=== PATIENT | male | born 1930 | race Caucasian/White ===

== ENCOUNTER → 2017-02-13 | Outpatient (CLI) | payer MEDICARE ==
[~2017-02-13] MED LIST: ASP81TEC PO; FINA5TAB6 PO; GLUC100020 PO; OLME1TAB19 PO; OMEG-70 PO; OMEP20TA2 PO; UBID1CAP51 PO
--- NOTE | 2017-02-15 07:03 | STRESS TEST ---
DATE OF SERVICE: 02/13/2017 REFERRING PHYSICIAN: Yary Laura M.D. INDICATION: Baseline heart rate is 73, baseline blood pressure 141/74. Baseline EKG is sinus rhythm with no ischemic changes. IN SUMMARY: The patient started exercising with the baseline heart rate, blood pressure and EKG mentioned above. At minute 6, the patient had occasional PVCs and ventricular couplets, EKG overall showed nondiagnostic changes [address] depression in II, III, aVF, V4 and V5. The patient was able to exercise for a total of 6 minutes and 30 seconds on standard Jose protocol. With peak exercise level, blood pressure was 210/66. EKG was showing nondiagnostic changes. During recovery, heart rate and blood pressure returned to baseline. EKG returned to baseline. Echocardiographic images were acquired and reviewed in the parasternal long axis, parasternal short axis, apical four chamber and apical two chamber views. Review of the images showed normal left ventricular size with normal contractility, no ischemic changes. CONCLUSION: 1. Good exercise tolerance a total of 6 minutes 30 seconds on standard Jose protocol, total of 7.9 METs achieving 100% of maximum expected heart rate. 2. Appropriate heart rate response to exercise, occasional PVCs and ventricular couplets noted at peak exercise level. 3. Nondiagnostic EKG changes with exercise returned to baseline during recovery. 4. Normal echocardiographic images at rest and with peak stress images with no significant ischemic changes. Job ID: [id number] DocumentID: [id number] Dictated Date: 02/13/2017 15:56:37 Alley Tender Date: 02/13/2017 18:35:44 Dictated By: SONIA GRIMALDO MD
== END ==
LOC: CARD 08:08
PROVIDERS: ATTEND Internal Medicine Cardiovascular Disease
DX: I10 Essential (primary) hypertension (principal); R94.31 Abnormal electrocardiogram [ECG] [EKG]; R53.83 Other fatigue; Z98.890 Other specified postprocedural states
CPT/HCPCS: 93306; 93351

== ENCOUNTER 2018-01-20 10:35 | Outpatient (RCR) | payer MEDICARE | END 2018-01-20 11:11 | disposition home or self-care (01) | PROVIDERS: ATTEND Family Medicine | DX: M19.111 Post-traumatic osteoarthritis, right shoulder (principal) ==

== ENCOUNTER 2018-08-08 11:43 | Emergency (ER) | payer MEDICARE ==
[~2018-08-08] VITALS: Ht 182.9 cm; Wt 73.9 kg
--- OUTSIDE RECORDS SUMMARY | 2018-08-08 11:47 | XMS REPORT | Continuity of Care Document ---
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 Allergies, Adverse Reactions, Alerts Allergen Type Severity Reaction Last Updated penicillin G Allergy Unknown 10/12/05 Medications Medication Dose Units Route Sig Qty Days Ubidecarenone/Vit E Acetate (Co Q-10 100 Mg Softgel) 1 Each PO DAILY [place]-3S/Dha/Epa/Fish Oil ([place]-3 Fish Oil 1,400 Mg Sfgl) 1 Each PO DAILY Glucosamine Sulfate 2KCL (Glucosamine Sulfate) 1000 Mg PO DAILY Aspirin (Aspirin Ec 81 Mg) 81 Mg PO DAILY Omeprazole 20 Mg PO DAILY Finasteride 5 Mg PO DAILY Olmesartan (Benicar Hct 20-12.5 Mg Tab) 1 Each PO DAILY Immunizations Name Given Type Date of Pneumonia Vaccine 07/03/10 H Date of Influenza Vaccine 04/02/12 H Response Recorded Date/Time Status not known Unknown Results Test Date Result Interp. Ref. Range Alanine Aminotransferase (ALT/SGPT) October 13, 2005 3:10pm 30 U/L N 30-65 Albumin October 13, 2005 3:10pm 3.0 G/DL L 3.4-5.0 Alkaline Phosphatase October 13, 2005 3:10pm 91 U/L N 50-136 Aspartate Amino Transf (AST/SGOT) October 13, 2005 3:10pm 13 U/L L 15-37 BUN/Creatinine Ratio October 13, 2005 3:10pm 16 - Basophils # (Auto) October 13, 2005 4:10pm 0.0 X 10^3 N 0.0-0.1 Basophils (%) (Auto) October 13, 2005 4:10pm 0 % N 0-10 Blood Urea Nitrogen October 13, 2005 3:10pm 21 MG/DL H 7-18 Calcium Level October 13, 2005 3:10pm 8.2 MG/DL L 8.5-10.1 Carbon Dioxide Level October 13, 2005 3:10pm 29 MMOL/L N 21-32 Chloride Level October 13, 2005 3:10pm 102 MMOL/L N 101-110 Creatinine October 13, 2005 3:10pm 1.3 MG/ DL N 0.6-1.3 D-Dimer October 13, 2005 4:10pm 0.83 UG/ ML H 0.00-0.49 Eosinophils # (Auto) October 13, 2005 4:10pm 0.2 X 10^3 N 0.0-0.3 Eosinophils (%) (Auto) October 13, 2005 4:10pm 2 % N 0-10 Glucose Level October 13, 2005 3:10pm 133 MG/DL H 70-126 Hematocrit October 13, 2005 4:10pm 37 % L 40-54 Hemoglobin October 13, 2005 4:10pm 11.7 G/ DL L 13.3-17.7 Lymphocytes # (Auto) October 13, 2005 4:10pm 1.6 X 10^3 N 1.0-4.0 Lymphocytes (%) (Auto) October 13, 2005 4:10pm 17 % N 12-44 Mean Corpuscular Hemoglobin October 13, 2005 4:10pm 26 PG N 25-34 Mean Corpuscular Hemoglobin Concent October 13, 2005 4:10pm 32 G/DL N 32-36 Mean Corpuscular Volume October 13, 2005 4:10pm 82 FL N 80-99 Mean Platelet Volume October 13, 2005 4:10pm 11.0 FL H 7.4-10.4 Monocytes # (Auto) October 13, 2005 4:10pm 0.9 X 10^3 N 0.0-1.0 Monocytes (%) (Auto) October 13, 2005 4:10pm 10 % N 0-12 Neutrophils # (Auto) October 13, 2005 4:10pm 6.6 X 10^3 N 1.8-7.8 Neutrophils (%) (Auto) October 13, 2005 4:10pm 71 % N 42-75 Platelet Count October 13, 2005 4:10pm 215 X 10^3 N 130-400 Potassium Level October 13, 2005 3:10pm 3.3 MMOL/L L 3.6-5.0 Red Blood Count October 13, 2005 4:10pm 4.44 X 10^6 N 4.30-5.45 Red Cell Distribution Width October 13, 2005 4:10pm 17.9 % H 10.0-14.5 Sodium Level October 13, 2005 3:10pm 136 MMOL/L N 135-145 Total Bilirubin October 13, 2005 3:10pm 0.2 MG/DL N 0.0-1.0 Total Protein October 13, 2005 3:10pm 5.6 G/DL L 6.4-8.2 Troponin I October 14, 2005 3:30am < 0.10 MG/ML 0.00-0.10 Urine Bacteria October 14, 2005 11:10am Negative - Urine Bilirubin October 14, 2005 11:10am Negative - Urine Casts October 14, 2005 11:10am None - Urine Clarity October 14, 2005 11:10am Clear - Urine Color October 14, 2005 11:10am Yellow - Urine Crystals October 14, 2005 11:10am None - Urine Glucose (UA) October 14, 2005 11:10am Negative - Urine Ketones October 14, 2005 11:10am Negative - Urine Leukocyte Esterase October 14, 2005 11:10am Negative - Urine Mucus October 14, 2005 11:10am Negative - Urine Nitrate October 14, 2005 11:10am Negative - Urine Protein October 14, 2005 11:10am Negative - Urine RBC October 14, 2005 11:10am 0-2 / HPF H - Urine Specific [place] October 14, 2005 11:10am 1.015 L - Urine Squamous Epithelial Cells October 14, 2005 11:10am Rare - Urine Urobilinogen October 14, 2005 11:10am Normal MG/DL - Urine WBC October 14, 2005 11:10am None / HPF - Urine pH October 14, 2005 11:10am 6.0 - White Blood Count October 13, 2005 4:10pm 9.3 X 10^3 N 4.3-11.0 Pathology Consult Specimen October 13, 2005 4:10pm See report - Creatine Kinase October 14, 2005 3:30am 13 mg/dl L 21-170 Procedures Procedure Code Date LESION REMOVAL COLONOSCOPY 51877 UPPER GI ENDOSCOPY/TUMOR 98864 08/10/05 UPPER GI ENDOSCOPY BIOPSY 03860 08/10/05 ENDOSCOPY MAXILLARY SINUS 72655 10/12/05 SINUS ENDOSCOPY SURGICAL 44486 10/12/05 REMOVAL OF ETHMOID SINUS 13928 10/12/05 NASAL/SINUS ENDOSCOPY SURG 72759 REPAIR OF NASAL SEPTUM 30222 10/12/05 RESECT INFERIOR TURBINATE 80987 10/12/05 DIAGNOSTIC COLONOSCOPY 43494 04/16/07
--- OUTSIDE RECORDS SUMMARY | 2018-08-08 11:48 | XMS REPORT | Continuity of Care Document ---
Author Author [facility] Organization [facility] Address Unknown Phone Unavailable Allergies Active Description Code Type Severity Reaction Onset Reported/Identified Relationship to Patient Clinical Status Yes penicillin G [id number] Drug Allergy Unknown N/A 10/12/2005 Medications There is no data. Problems Date Dx Coded Attending Type Code Diagnosis Diagnosed By 12/30/2012 MARVIN COBIAN MD Ot 455.3 EXT HEMORRHOID W/O COMPL 12/30/2012 MARVIN COBIAN MD Ot 562.10 DIVERTICULOSIS COLON (W/O MENT OF HEMORR 12/30/2012 MARVIN COBIAN MD Ot 569.3 RECTAL ANAL HEMORRHAGE 12/30/2012 MARVIN COBIAN MD Ot 600.00 HYPERTROPHY (BENIGN) OF PROSTATE W/O URI 05/29/2013 BRIGITTE WOOD MD Ot V43.65 KNEE JOINT REPLACEMENT STATUS 05/29/2013 BRIGITTE WOOD MD Ot V54.81 AFTERCARE FOLLOWING JOINT REPLACEMENT 05/29/2013 BRIGITTE WOOD MD Ot V57.1 PHYSICAL THERAPY NEC 02/14/2017 SONIA GRIMALDO MD Ot I10 ESSENTIAL (PRIMARY) HYPERTENSION 02/14/2017 SONIA GRIMALDO MD Ot R53.83 OTHER FATIGUE 02/14/2017 SONIA GRIMALDO MD Ot R94.31 ABNORMAL ELECTROCARDIOGRAM [ECG] [EKG] 02/14/2017 SONIA GRIMALDO MD Ot Z98.890 OTHER SPECIFIED POSTPROCEDURAL STATES 04/04/2017 SONIA GRIMALDO MD Ot I10 ESSENTIAL (PRIMARY) HYPERTENSION 04/04/2017 SONIA GRIMALDO MD Ot R53.83 OTHER FATIGUE 04/04/2017 SONIA GRIMALDO MD Ot R94.31 ABNORMAL ELECTROCARDIOGRAM [ECG] [EKG] 04/04/2017 SONIA GRIMALDO MD Ot Z98.890 OTHER SPECIFIED POSTPROCEDURAL STATES 04/10/2017 SONIA GRIMALDO MD Ot I10 ESSENTIAL (PRIMARY) HYPERTENSION 04/10/2017 SONIA GRIMALDO MD Ot R53.83 OTHER FATIGUE 04/10/2017 SONIA GRIMALDO MD Ot R94.31 ABNORMAL ELECTROCARDIOGRAM [ECG] [EKG] 04/10/2017 SONIA GRIMALDO MD Ot Z98.890 OTHER SPECIFIED POSTPROCEDURAL STATES 11/04/2017 KIKI BERUMEN, ARIAS Triana Ot 729.5 PAIN IN LIMB 11/04/2017 MARVIN COBIAN MD Ot V72.84 EXAM PRE-OPERATIVE NOS 11/04/2017 SONIA GRIMALDO MD Ot I10 ESSENTIAL (PRIMARY) HYPERTENSION 11/04/2017 SONIA GRIMALDO MD Ot R53.83 OTHER FATIGUE 11/04/2017 SONIA GRIMALDO MD Ot R94.31 ABNORMAL ELECTROCARDIOGRAM [ECG] [EKG] 11/04/2017 SONIA GRIMALDO MD Ot Z98.890 OTHER SPECIFIED POSTPROCEDURAL STATES 12/12/2017 MINAL RODRIGUEZ MD Ot M19.111 POST-TRAUMATIC OSTEOARTHRITIS, RIGHT LICHA 01/13/2018 MINAL RODRIGUEZ MD Ot 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 Results There is no data. Encounters ACCT No. Visit Date/Time Discharge Status Pt. Type Provider Facility Loc./Unit Complaint [id number] 01/20/2018 10:35:00 01/20/2018 11:11:00 DIS Outpatient MINAL RODRIGUEZ MD [facility] REHAB PAIN IN R SHOULDER; SECONDARY OA R SHOULDER [id number] 02/13/2017 08:08:00 02/13/2017 23:59:59 CLS Outpatient SONIA GRIMALDO MD [facility] CARD HTN I10,ABNORMAL ECG R94.31 [id number] 05/18/2013 14:34:00 05/29/2013 10:25:00 DIS Outpatient BRIGITTE WOOD MD [facility] REHAB RIGHT TKR [id number] 12/30/2012 08:29:00 12/30/2012 11:45:00 DIS Outpatient MARVIN COBIAN MD [facility] SDC RECTAL BLEEDING [id number] 12/24/2012 08:14:00 12/24/2012 23:59:59 CLS Outpatient ARANZA BERUMEN, MARVIN Lee [facility] PREOP RECTAL BLEEDING [id number] 12/22/2012 09:00:00 12/22/2012 23:59:59 CLS Outpatient KIKI BERUMEN, ARIAS Triana [facility] RAD BILAT LEG PAIN, ESPECIALLY WITH STANDING [id number] 11/04/2017 11:52:00 Document Registration [id number] 03/05/2017 19:23:53 03/05/2017 23:59:59 CLS Outpatient
--- NOTE | 2018-08-08 12:51 | ED General ---
General Chief Complaint: Neurological Problems Stated Complaint: CONFUSION Nursing Triage Note: Ambulatory to triage. Pt accompanied by . reports pt was going from window to window and stated, "I am trying to figure out what's going on. When did I put the shield on the truck window?" reports nothing had changed and pt had put shield on truck a week ago. reports pt did not know what day it was and pt attempted to medications twice this morning. Pt A&O times 4 during assessment. Pt denies pain at this time. Pt reports calling Dr. Michael Ruvalcaba and was told to come to ED. Nursing Sepsis Screen: No Definite Risk Source of Information: Patient, Family Exam Limitations: No Limitations History of Present Illness Date Seen by Provider: Aug 08, 2018 Time Seen by Provider: 12:46 Initial Comments tHE PATIENT IS A PLEASANT 87-YEAR-OLD WHITE MALE. He was brought here at the insistence of his . She reported that between 1 and 2 hours after they had gotten out of bed this morning she found him wondering about from windowed window in the front room. When she questioned him about what he was doing he reported that he was trying to figure things out. He was quite confused but showed no evidence of incoordination or muscular weakness. His gait appeared to be normal. She estimates that they started out here at about 1130 after having spoken to their doctor's office. By that time he was much better oriented. He denies fever chills sweats. His health has generally been good. 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 He also takes medications for hypertension. Timing/Duration: 4-6 Hours Allergies and Home Medications Allergies Coded Allergies: amoxicillin (Unverified Allergy, Unknown, rash, 08/08/18) penicillin G (Verified Allergy, Unknown, 10/12/05) Home Medications Aspirin 81 Mg Tabec, 81 MG PO DAILY, (Reported) Finasteride 5 Mg Tablet, 5 MG PO DAILY, (Reported) Glucosamine Sulfate 2KCL 1,000 Mg Capsule, 1,000 MG PO DAILY, (Reported) Olmesartan 1 Tab Tablet, 1 EACH PO DAILY, (Reported) [place]-3S/Dha/Epa/Fish Oil 1 Each Capsule., 1 EACH PO DAILY, (Reported) Omeprazole 20 Mg Tablet.dr, 20 MG PO DAILY, (Reported) Ubidecarenone/Vit E Acetate 1 Each Capsule, 1 EACH PO DAILY, (Reported) Patient Home Medication List Home Medication List Reviewed: Yes Review of Systems Review of Systems Constitutional: see HPI EENTM: no symptoms reported Respiratory: no symptoms reported Cardiovascular: no symptoms reported Gastrointestinal: no symptoms reported Genitourinary: no symptoms reported Musculoskeletal: no symptoms reported Skin: no symptoms reported Psychiatric/Neurological: No Symptoms Reported Hematologic/Lymphatic: No Symptoms Reported Past Wkaoyfv-[id number]-Xojzeq Hx Patient Social History Recent Foreign Travel: No Contact w/Someone Who Travel: No Recent Infectious Disease Expo: No Immunizations Up To Date Date of Pneumonia Vaccine: Jul 03, 2010 Date of Influenza Vaccine: Apr 02, 2012 Physical Exam Vital Signs Vital Signs - First Documented 08/08/18 12:05 Temp 97.3 Pulse 85 Resp 16 B/P (MAP) 156/73 (100) Pulse Ox 96 O2 Delivery Room Air Capillary Refill : Less Than 3 Seconds Height, Weight, BMI Height: 6'0" Weight: 163lbs. oz. 73.803071lo; BMI Method:Stated General Appearance: No Apparent Distress, WD/WN Eyes: Bilateral Eye Normal Inspection HEENT: Normal ENT Inspection Neck: Full Range of Motion, Normal Inspection, Non Tender, Supple Respiratory: Chest Non Tender, Lungs Clear, Normal Breath Sounds, No Accessory Muscle Use, No Respiratory Distress Cardiovascular: Regular Rate, Rhythm, No Edema, No Gallop, No JVD, No Murmur, Normal Peripheral Pulses Gastrointestinal: Normal Bowel Sounds, No Organomegaly, No Pulsatile Mass, Non Tender, Soft Back: Normal Inspection Extremity: Normal Capillary Refill, Normal Inspection, Normal Range of Motion, Non Tender, No Calf Tenderness, No Pedal Edema Neurologic/Psychiatric: Alert, Oriented x3, No Motor/Sensory Deficits, Normal Mood/Affect Skin: Normal Color, Warm/Dry Lymphatic: No Adenopathy Progress/Results/Core Measures Suspected Sepsis Recent Fever Within 48 Hours: No Infection Criteria Present: None New/Unexplained Altered Menta: Yes Sepsis Screen: No Definite Risk SIRS Temperature:97.3 Pulse: 85 Respiratory Rate: 16 Laboratory Tests 08/08/18 13:30: White Blood Count 10.5 Blood Pressure 156 /73 Mean: 100 Laboratory Tests 08/08/18 13:30: Creatinine 1.31H, Platelet Count 273, Total Bilirubin 0.6 Results/Orders Lab Results Laboratory Tests Test 08/08/18 13:11 08/08/18 13:30 Range/Units Urine Color YELLOW Urine Clarity CLEAR Urine pH 7 5-9 Urine Specific [place] 1.005 L 1.016-1.022 Urine Protein NEGATIVE NEGATIVE Urine Glucose (UA) NEGATIVE NEGATIVE Urine Ketones NEGATIVE NEGATIVE Urine Nitrite NEGATIVE NEGATIVE Urine Bilirubin NEGATIVE NEGATIVE Urine Urobilinogen NORMAL NORMAL MG/DL Urine Leukocyte Esterase NEGATIVE NEGATIVE Urine RBC (Auto) NEGATIVE NEGATIVE Urine RBC NONE /HPF Urine WBC NONE /HPF Urine Squamous Epithelial Cells RARE /HPF Urine Crystals NONE /LPF Urine Bacteria NEGATIVE /HPF Urine Casts NONE /LPF Urine Mucus NEGATIVE /LPF Urine Culture Indicated NO White Blood Count 10.5 4.3-11.0 10^3/uL Red Blood Count 5.01 4.35-5.85 10^6/uL Hemoglobin 14.7 13.3-17.7 G/DL Hematocrit 45 40-54 % Mean Corpuscular Volume 89 80-99 FL Mean Corpuscular Hemoglobin 29 25-34 PG Mean Corpuscular Hemoglobin Concent 33 32-36 G/DL Red Cell Distribution Width 14.2 10.0-14.5 % Platelet Count 273 130-400 10^3/uL Mean Platelet Volume 11.0 H 7.4-10.4 FL Neutrophils (%) (Auto) 83 H 42-75 % Lymphocytes (%) (Auto) 8 L 12-44 % Monocytes (%) (Auto) 8 0-12 % Eosinophils (%) (Auto) 1 0-10 % Basophils (%) (Auto) 0 0-10 % Neutrophils # (Auto) 8.7 H 1.8-7.8 X 10^3 Lymphocytes # (Auto) 0.9 L 1.0-4.0 X 10^3 Monocytes # (Auto) 0.8 0.0-1.0 X 10^3 Eosinophils # (Auto) 0.1 0.0-0.3 10^3/uL Basophils # (Auto) 0.0 0.0-0.1 10^3/uL Sodium Level 140 135-145 MMOL/L Potassium Level 3.9 3.6-5.0 MMOL/L Chloride Level 105 98-107 MMOL/L Carbon Dioxide Level 26 21-32 MMOL/L Anion Gap 9 5-14 MMOL/L Blood Urea Nitrogen 17 7-18 MG/DL Creatinine 1.31 H 0.60-1.30 MG/DL Estimat Glomerular Filtration Rate 52 BUN/Creatinine Ratio 13 Glucose Level 108 H 70-105 MG/DL Calcium Level 9.8 8.5-10.1 MG/DL Corrected Calcium 9.8 8.5-10.1 MG/DL Total Bilirubin 0.6 0.1-1.0 MG/DL Aspartate Amino Transf (AST/SGOT) 20 5-34 U/L Alanine Aminotransferase (ALT/SGPT) 20 0-55 U/L Alkaline Phosphatase 69 40-136 U/L Total Protein 6.9 6.4-8.2 GM/DL Albumin 4.0 3.2-4.5 GM/DL My Orders Orders - SHIRLENE PEREIRA MD Cbc With Automated Diff (08/08/18 12:31) Comprehensive Metabolic Panel (08/08/18 12:31) Ua Culture If Indicated (08/08/18 12:31) Ct Head Wo (08/08/18 14:03) Vital Signs/I&O 08/08/18 12:05 Temp 97.3 Pulse 85 Resp 16 B/P (MAP) 156/73 (100) Pulse Ox 96 O2 Delivery Room Air Capillary Refill : Less Than 3 Seconds Blood Pressure Mean: 100 Departure Communication (Admissions) Lab was normal. CT of head Impression Primary Impression: transient confusion Disposition: 01 HOME, SELF-CARE Condition: Improved Departure-Patient Inst. Decision time for Depature: 15:04 Referrals: MICHAEL RUVALCABA MD (PCP) Primary Care Physician Add. Discharge Instructions: All discharge instructions reviewed with patient and/or family. Voiced understanding. Continue medications and routines as previously. If recurrence of symptoms return to ER SHIRLENE PEREIRA MD Aug 08, 2018 12:51
[2018-08-08 13:18] LABS: BILIRUBIN,URINE NEGATIVE (NEGATIVE); CLARITY,URINE CLEAR; COLOR,URINE YELLOW; GLUCOSE, URINE (UA) NEGATIVE (NEGATIVE); KETONES,URINE NEGATIVE (NEGATIVE); LEUKOCYTE ESTERASE ,URINE NEGATIVE (NEGATIVE); NITRITE,URINE NEGATIVE (NEGATIVE); PH,URINE 7 (5-9); PROTEIN,URINE NEGATIVE (NEGATIVE); UROBILINOGEN,URINE NORMAL (NORMAL)
[2018-08-08 13:30] LABS: BACTERIA,URINE NEGATIVE /HPF; SQUAMOUS EPITHELIAL CELL,UR RARE /HPF
[2018-08-08 13:39] LABS: BASOPHILS % (AUTO) 0 % (0-10); EOSINOPHILS # (AUTO) 0.1 10^3/uL (0.0-0.3); EOSINOPHILS % (AUTO) 1 % (0-10); HEMATOCRIT 45 % (40-54); HEMOGLOBIN 14.7 G/DL (13.3-17.7); LYMPHOCYTES # (AUTO) 0.9 X 10^3 (1.0-4.0); LYMPHOCYTES % (AUTO) 8 % (12-44); MEAN CORPUSCULAR HEMOGLOBIN 29 PG (25-34); MEAN CORPUSCULAR HGB CONC 33 G/DL (32-36); MEAN CORPUSCULAR VOLUME 89 FL (80-99); MONOCYTES # (AUTO) 0.8 X 10^3 (0.0-1.0); MONOCYTES % (AUTO) 8 % (0-12); NEUTROPHILS # (AUTO) 8.7 X 10^3 (1.8-7.8); NEUTROPHILS % (AUTO) 83 % (42-75); PLATELET COUNT 273 10^3/uL (130-400); RED CELL DISTRIBUTION WIDTH 14.2 % (10.0-14.5); WHITE BLOOD COUNT 10.5 10^3/uL (4.3-11.0)
[2018-08-08 13:56] LABS: BILIRUBIN,TOTAL 0.6 MG/DL (0.1-1.0); CALCIUM 9.8 MG/DL (8.5-10.1); CREATININE SERUM 1.31 MG/DL (0.60-1.30); POTASSIUM 3.9 MMOL/L (3.6-5.0); TOTAL PROTEIN 6.9 GM/DL (6.4-8.2)
--- NOTE | 2018-08-08 14:48 | Diagnostic Imaging Report ---
INDICATION: Memory loss. Confusion. TECHNIQUE: Routine non contrast-enhanced axial images were obtained from the skull base to the vertex. COMPARISON: None. FINDINGS: The ventricles and cortical sulci are diffusely prominent, compatible with age-related volume loss. There are confluent areas of abnormal, low attenuation in the periventricular white matter. This is consistent with small vessel ischemic changes; age-indeterminate. There is no prior study available for comparison. There is no midline shift or mass-effect. No acute intra-axial hemorrhage is seen. There are no abnormal areas of increased or decreased density to suggest acute hemorrhage or edema. No extra-axial masses or collections are present. The bony calvarium is intact. The visualized paranasal sinuses are unremarkable. The mastoid air cells are clear. IMPRESSION: 1. No acute intracranial abnormality. No CT evidence of mass, acute infarct or intracranial hemorrhage. 2. Small vessel ischemic changes in the periventricular and subcortical white matter; likely chronic. Dictated by: Dictated on workstation # [id number]
[2018-08-08 15:18] VITALS: BP 183/97
== END 2018-08-08 15:28 | disposition home or self-care (01) ==
LOC: EDUNIT# 11:43 → ER 11:44
DX: R41.0 Disorientation, unspecified (principal); I10 Essential (primary) hypertension; M35.3 Polymyalgia rheumatica; Z88.1 Allergy status to other antibiotic agents; Z88.0 Allergy status to penicillin; Z79.82 Long term (current) use of aspirin
CPT/HCPCS: 36415; 70450; 80053; 81000; 85025

== ENCOUNTER 2020-04-21 13:45 | Outpatient (RCR) | payer MEDICARE | END 2020-04-25 | disposition home or self-care (01) | PROVIDERS: ATTEND Family Medicine | DX: K21.9 Gastro-esophageal reflux disease without esophagitis (principal); I10 Essential (primary) hypertension; C61 Malignant neoplasm of prostate; M25.552 Pain in left hip; M25.562 Pain in left knee ==

== ENCOUNTER 2020-06-22 11:08 | Outpatient (RCR) | payer MEDICARE | END 2020-07-26 | disposition home or self-care (01) | PROVIDERS: ATTEND Family Medicine | DX: M25.552 Pain in left hip (principal); M25.562 Pain in left knee; Z85.46 Personal history of malignant neoplasm of prostate ==

== ENCOUNTER → 2020-11-24 | Outpatient (CLI) | payer MEDICARE ==
--- NOTE | 2020-11-24 14:38 | Diagnostic Imaging Report ---
INDICATION: Spinal pain radiating into left side, intermittent cramping. Correlation limited to overlapped views obtained during a lumbar MRI performed 12/22/2012. The thoracic spinal cord itself has an unremarkable volume morphology and signal intensity. There was no paravertebral mass, hemorrhage or fluid collection. There are degenerative changes to the discs endplates and facets throughout the thoracic spine with relatively mild and predominantly anteriorly directed osteophyte disc material. No cord compression found. No high-grade canal stenosis. There is a lesion in the right T10 pedicle lamina and into the base of the right transverse process at T10. This is hypointense on T1 and T2 pulse sequences. It shows no evidence for marrow edema. This is above the field of view of the correlated study and would recommend followup with contrast enhanced thoracic MRI to see if this lesion is an active enhancing process or if this is a chronic sclerotic focus. No other marrow replacing process was found. The vertebral body statures are normal. The bony alignment is unremarkable. There is lower cervical and upper lumbar spondylosis. No focal thoracic disc herniation. The ligamentous structures were intact. No paravertebral mass, hemorrhage or fluid collection is found IMPRESSION: 1. Degenerative changes without significant stenosis, normal cord, normal alignment, no marrow edema. 2. Nonspecific hypointense marrow lesion T10 pedicle and lamina on the right correlate with postcontrast enhanced images. No evidence for fracture or soft tissue mass or associated marrow edema. Dictated by: Dictated on workstation # [id number]
== END ==
LOC: RAD 10:37
PROVIDERS: ATTEND Family Medicine
DX: M47.814 Spondylosis without myelopathy or radiculopathy, thoracic region (principal); M89.8X8 Other specified disorders of bone, other site
CPT/HCPCS: 72146

== ENCOUNTER → 2020-12-30 | Outpatient (CLI) | payer MEDICARE ==
--- NOTE | 2020-12-30 12:59 | Diagnostic Imaging Report ---
INDICATION: Dyspnea. PA and lateral views were obtained. FINDINGS: The heart size, mediastinal configuration, and pulmonary vascularity are within normal limits. There is no pleural effusion, pneumothorax, or pneumonia. The osseous structures are unremarkable. IMPRESSION: No acute cardiopulmonary abnormality. Dictated by: Dictated on workstation # [id number]
== END ==
LOC: RAD 11:50
PROVIDERS: ATTEND Internal Medicine Cardiovascular Disease
DX: R06.09 Other forms of dyspnea (principal)
CPT/HCPCS: 71046

== ENCOUNTER 2021-01-05 14:25 | Outpatient (RCR) | payer MEDICARE | END 2021-01-10 | disposition home or self-care (01) | PROVIDERS: ATTEND Family Medicine | DX: M25.552 Pain in left hip (principal); M25.562 Pain in left knee; M54.5 Low back pain; Z85.46 Personal history of malignant neoplasm of prostate ==

== ENCOUNTER 2021-01-11 09:59 | Outpatient (CLI) | payer MEDICARE | END 2021-01-11 11:00 | LOC: SLEEP 09:59 | PROVIDERS: ATTEND Internal Medicine Cardiovascular Disease | DX: G47.33 Obstructive sleep apnea (adult) (pediatric) (principal) | CPT/HCPCS: G0399 ==

== ENCOUNTER → 2021-01-11 | Outpatient (CLI) | payer MEDICARE | LOC: CARD 10:19 | PROVIDERS: ATTEND Internal Medicine Cardiovascular Disease | DX: I34.0 Nonrheumatic mitral (valve) insufficiency (principal) | CPT/HCPCS: 93306 ==

== ENCOUNTER → 2021-01-12 | Outpatient (CLI) | payer MEDICARE ==
[~2021-01-12] MED LIST changes: +CATHETER FLUSH 10 ML SYR IV PRN; +REGADENOSON 0.4 MG/5 ML SYR (LEXISCAN) IV ONE
[2021-01-12 09:05] VITALS: BP 161/79
--- NOTE | 2021-01-12 15:16 | NUCLEAR STRESS TEST ---
REGADENOSON NUCLEAR STRESS Date of procedure: 01/12/2021. Primary care provider: Michael Ruvalcaba MD Admitting physician: Rene Bland Jr., MD. INDICATION: Abnormal ECG. 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 STRESS TEST PROCEDURE: The patient was administered 0.4 mg of intravenous Regadenoson. The resting heart rate was 85 bpm and the peak heart rate was 98 bpm. The resting blood pressure was 161/79 mmHg and the minimum blood pressure was 139/57 mmHg. This represents a normal heart rate and a normal blood pressure response to Regadenoson. The test was stopped due to the protocol. There was no chest discomfort during the test. There were isolated premature ventricular complexes during the test. There were no significant stress induced electrocardiogram changes. NUCLEAR PROCEDURE: The patient was administered 11 mCi of intravenous technetium 99m Tetrofosmin at rest for the rest images. The patient was subsequently administered 30.8 mCi of intravenous technetium 99m Tetrofosmin at peak stress for the stress images. Following an appropriate wait after each injection, imaging was obtained. The images were subsequently processed and reformatted in the usual views. Gated imaging was obtained. The image quality was adequate but with some gastrointestinal attenuation. CT attenuation correction could not be performed. NUCLEAR RESULTS: There was a moderate sized, moderate intensity, predominantly reversible inferior and apical defect with a small amount of inducible ischemia with a summed stress score of 8 and a summed difference score of 5. There was normal left ventricular chamber size with an end-diastolic volume of 49 mL and an end-systolic volume of 13 mL. There was no evidence of transient ischemic dilatation. The TID ratio was 1.05. There was normal wall motion in all se gments with a calculated ejection fraction of 74%. IMPRESSION: 1. Normal heart rate and blood pressure response to regadenoson. 2. There was no chest discomfort or electrocardiogram changes during the test. 3. There were isolated premature ventricular complexes during the test. 4. There was a moderate sized, moderate intensity, predominantly reversible inferior and apical defect with a small amount of inducible ischemia with a summed stress score of 8 and a summed difference score of 5. 5. There was normal wall motion in all segments with a calculated ejection fraction of 74%. 6. This is an abnormal result although overall low risk for future cardiac events. Certain portions of this document may have been dictated utilizing voice recognition technology. Inherent to this technology, typographical and grammatical errors may exist. As much as I am diligent to identify and correct these mistakes, some errors may remain in the document. RENE BLAND JR, MD Jan 12, 2021 15:16
== END ==
LOC: CARD 07:32
PROVIDERS: ATTEND Internal Medicine Cardiovascular Disease
DX: R94.31 Abnormal electrocardiogram [ECG] [EKG] (principal)
CPT/HCPCS: 78452; 93017; A9502

== ENCOUNTER 2021-04-14 13:45 | Outpatient (RCR) | payer MEDICARE ==
[~2021-04-14 13:45] MED LIST changes: -CATHETER FLUSH 10 ML SYR IV PRN; -REGADENOSON 0.4 MG/5 ML SYR (LEXISCAN) IV ONE
== END 2021-04-17 | disposition home or self-care (01) ==
PROVIDERS: ATTEND Family Medicine
DX: M25.562 Pain in left knee (principal); M25.552 Pain in left hip; I10 Essential (primary) hypertension; C61 Malignant neoplasm of prostate; K21.9 Gastro-esophageal reflux disease without esophagitis

== ENCOUNTER → 2021-05-23 | Outpatient (CLI) | payer MEDICARE ==
--- NOTE | 2021-05-23 16:23 | Diagnostic Imaging Report ---
CLINICAL HISTORY: Bilateral shoulder pain. Arthritis. No known injury. COMPARISON: None. TECHNIQUE: Six views of the bilateral shoulders. FINDINGS: There is no acute fracture or dislocation of the bilateral shoulders. Large burden of ossified bodies is seen within the bilateral glenohumeral joints. There are advanced degenerative changes in the bilateral glenohumeral joints with joint space narrowing, marginal osteophytes, and subchondral sclerosis. Chronic appearing fracture is seen in the lateral aspect of the right clavicle. The included chest is clear. IMPRESSION: 1. No acute fracture or dislocation in the bilateral shoulders. 2. 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 3. 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 Dictated by: Dictated on workstation # [id number]
== END ==
LOC: RAD 13:39
PROVIDERS: ATTEND Family Medicine
DX: M19.012 Primary osteoarthritis, left shoulder (principal); M19.011 Primary osteoarthritis, right shoulder
CPT/HCPCS: 36415; 85652; 86038; 86039; 86141; 86200; 86225; 86235; 86431

== ENCOUNTER 2021-07-19 14:06 | Outpatient (RCR) | payer MEDICARE | END 2021-07-24 | disposition home or self-care (01) | PROVIDERS: ATTEND Family Medicine | DX: M25.552 Pain in left hip (principal); M25.562 Pain in left knee; M25.512 Pain in left shoulder; M25.511 Pain in right shoulder; M54.50 Low back pain, unspecified; I10 Essential (primary) hypertension ==

== ENCOUNTER 2021-08-08 13:55 | Outpatient (RCR) | payer MEDICARE | END 2021-08-21 | disposition home or self-care (01) | PROVIDERS: ATTEND Family Medicine | DX: M25.552 Pain in left hip (principal); M25.562 Pain in left knee; M25.512 Pain in left shoulder; M25.511 Pain in right shoulder; M54.50 Low back pain, unspecified; I10 Essential (primary) hypertension; K21.9 Gastro-esophageal reflux disease without esophagitis ==

== ENCOUNTER 2021-08-28 11:21 | Outpatient (RCR) | payer MEDICARE | END 2021-09-21 | disposition home or self-care (01) | LOC: ONC 11:21 | PROVIDERS: ATTEND Internal Medicine Cardiovascular Disease | DX: C61 Malignant neoplasm of prostate (principal); I10 Essential (primary) hypertension | CPT/HCPCS: 99214 ==

== ENCOUNTER 2021-09-20 11:13 | Outpatient (RCR) | payer MEDICARE | END 2021-09-21 | disposition home or self-care (01) | PROVIDERS: ATTEND Family Medicine | DX: M25.552 Pain in left hip (principal); M25.562 Pain in left knee; M25.512 Pain in left shoulder; M25.511 Pain in right shoulder; M54.50 Low back pain, unspecified; I10 Essential (primary) hypertension; K21.9 Gastro-esophageal reflux disease without esophagitis ==

== ENCOUNTER 2021-09-25 09:50 | Outpatient (RCR) | payer MEDICARE ==
[2021-09-25 10:53] LABS: BASOPHILS % (AUTO) 1 % (0-10); EOSINOPHILS # (AUTO) 0.1 10^3/uL (0.0-0.3); EOSINOPHILS % (AUTO) 1 % (0-10); HEMATOCRIT 36 % (40-54); LYMPHOCYTES # (AUTO) 1.4 10^3/uL (1.0-4.0); LYMPHOCYTES % (AUTO) 17 % (12-44); MEAN CORPUSCULAR HEMOGLOBIN 30 pg (25-34); MEAN CORPUSCULAR HGB CONC 34 g/dL (32-36); MEAN CORPUSCULAR VOLUME 90 fL (80-99); MEAN PLATELET VOLUME 10.8 fL (9.0-12.2); MONOCYTES # (AUTO) 0.9 10^3/uL (0.0-1.0); MONOCYTES % (AUTO) 11 % (0-12); NEUTROPHILS % (AUTO) 71 % (42-75); PLATELET COUNT 277 10^3/uL (130-400); WHITE BLOOD COUNT 8.5 10^3/uL (4.3-11.0)
[2021-09-25 11:10] LABS: BILIRUBIN,TOTAL 0.4 MG/DL (0.1-1.0); CALCIUM 10.7 MG/DL (8.5-10.1); CREATININE SERUM 1.47 MG/DL (0.60-1.30); POTASSIUM 4.1 MMOL/L (3.6-5.0); TOTAL PROTEIN 6.7 GM/DL (6.4-8.2)
[2021-09-25] MEDS ORDERED: DENOSUMAB 60 MG/1 ML (PROLIA) SQ SCH (17:00)
== END 2021-10-21 | disposition home or self-care (01) ==
LOC: ONC 09:50
PROVIDERS: ATTEND Internal Medicine
DX: C61 Malignant neoplasm of prostate (principal); I10 Essential (primary) hypertension
CPT/HCPCS: 80053; 85025; 96372; G0463; 36415; 99213